=== PATIENT | female | born 1990 | race Caucasian/White ===

== ENCOUNTER 2022-04-12 15:40 | Inpatient (IN) | payer OTHER ==
[2022-04-12] MEDS ORDERED: OXYTOCIN 30 UNITS in 0.9% NS 30 UNIT/500 ML INFUS.BAG IVPB SCH (16:45)
[2022-04-12 17:13] VITALS: BMI 33.5
[2022-04-12] MEDS ORDERED: DEXTROSE 5%-LACTATED RINGERS 1,000 ML IV SCH (17:15)
[2022-04-12 18:12] LABS: BASO % 0.2 % (0-2.0); EOS % 0.9 % (0-4.5); HEMATOCRIT 31.3 % (32.4-45.2); HEMOGLOBIN 11.1 GM/dL (10.7-15.3); LYMPH % 23.2 % (8-40); MCH 31.5 pg (25.7-33.7); MCHC 35.3 g/dl (32.0-36.0); MEAN CELL VOLUME 89.1 fl (80-96); MEAN PLT VOLUME 9.7 fl (7.5-11.1); MONO % 7.9 % (3.8-10.2); NEUT % 67.8 % (42.8-82.8); PLATELET COUNT 233 10^3/uL (134-434); RBC 3.52 M/mm3 (3.60-5.2); RDW 13.2 % (11.6-15.6); WHITE BLOOD COUNT 10.4 K/mm3 (4.0-10.0)
[2022-04-12 18:18] LABS: INR 0.95 (0.83-1.09); PROTHROMBIN TIME (PATIENT) 10.9 SEC (9.7-13.0)
[2022-04-12 18:20] LABS: ACTIVATED PTT 28.6 SECONDS (25.2-36.5)
[2022-04-12 18:31] LABS: CALCIUM 8.6 mg/dL (8.5-10.1)
[2022-04-12 18:32] LABS: BLOOD UREA NITROGEN 10.3 mg/dL (7-18)
[2022-04-12 18:35] LABS: CREATININE 0.7 mg/dL (0.55-1.3)
[2022-04-13] MEDS ORDERED: FENTANYL/BUPIVACAINE/NS/PF - PCEA - 50 ML DISP.SYRIN EP ONE ×2 (09:44→11:04)
[2022-04-13] MEDS: ELECTROLYTE-148 SOLN 1,000 ML IV SCH ×2 (10:00→14:00)
[2022-04-13] MEDS ORDERED: BUPIVACAINE HCL/PF 0.25% (2.5MG/ML) 10 ML VIAL ONE (11:07)
[2022-04-13] MEDS ORDERED: NALOXONE HCL 0.4 MG/ML VIAL IVPUSH PRN (11:15)
[2022-04-13] MEDS: FENTANYL/BUPIVACAINE/NS/PF - PCEA - 50 ML DISP.SYRIN EP SCH (11:40)
[2022-04-13] MEDS ORDERED: OXYTOCIN 20 UNITS in 0.9% NS 20 UNIT/1,000 ML INFUS.BAG IV ONE (14:26)
[2022-04-13] MEDS ORDERED: METHYLERGONOVINE MALEATE 0.2 MG/1 ML AMP IM PRN (15:40)
[2022-04-13] MEDS ORDERED: IBUPROFEN 600 MG TABLET (FP) PO PRN (15:40)
[2022-04-13] MEDS ORDERED: BENZOCAINE 20% 57 GM BOTTLE TP PRN (15:40)
[2022-04-13] MEDS ORDERED: WITCH HAZEL 50% (TUCKS) 40 PAD/JAR PAD TP PRN (15:40)
[2022-04-13] MEDS ORDERED: ACETAMINOPHEN 325 MG TABLET (FP) PO PRN (15:40)
[2022-04-13] MEDS ORDERED: oxyCODONE HCL 5 MG TABLET PO PRN (15:40)
[2022-04-13] MEDS ORDERED: BISACODYL 10 MG SUPP.RECT RC PRN (15:40)
[2022-04-13] MEDS ORDERED: BENZOCAINE 28 GM HEMORRHOIDAL OINTMENT TP PRN (15:40)
[2022-04-13] MEDS ORDERED: OXYTOCIN 20 UNITS in 0.9% NS 20 UNIT/1,000 ML INFUS.BAG IV SCH (15:45)
[2022-04-13 15:47] LABS: CORD BASE EXCESS -9.7 mmol/L (0-2); CORD BASE EXCESS -9.8 mmol/L (0-2); CORD HCO3 18.1 mmHg (20-29); CORD HCO3 19.3 mmHg (20-29); CORD PCO2 46.6 mmHg (30-78); CORD PCO2 55.1 mmHg (30-78); CORD pH 7.162 (7.14-7.44); CORD pH 7.208 (7.14-7.44)
[2022-04-14 08:47] LABS: BASO % 0.1 % (0-2.0); EOS % 0.1 % (0-4.5); HEMATOCRIT 26.8 % (32.4-45.2); HEMOGLOBIN 9.2 GM/dL (10.7-15.3); LYMPH % 18.5 % (8-40); MCH 30.7 pg (25.7-33.7); MCHC 34.3 g/dl (32.0-36.0); MEAN CELL VOLUME 89.4 fl (80-96); MONO % 7.8 % (3.8-10.2); NEUT % 73.5 % (42.8-82.8); PLATELET COUNT 200 10^3/uL (134-434); RDW 13.6 % (11.6-15.6)
[2022-04-14] MEDS: PRENATAL VITAMINS W/ FOLIC ACID TABLET (FP) PO SCH (10:13)
[2022-04-14 13:06] LABS: POC NITRAZINE POS
[2022-04-14] MEDS ORDERED: SENNOSIDES/DOCUSATE COMBO (SENNA PLUS) TABLET (UD) PO PRN (22:00)
[2022-04-15] MEDS: FENTANYL/BUPIVACAINE/NS/PF - PCEA - 50 ML DISP.SYRIN EP SCH (07:39)
[2022-04-15] MEDS: PRENATAL VITAMINS W/ FOLIC ACID TABLET (FP) PO SCH (10:47)
[2022-04-15 10:59] VITALS: BP 128/81; PULSE 92; TEMP 97.8
== END 2022-04-15 13:00 | disposition home or self-care (01) | DRG 807 ==
LOC: JLDR 15:40 → J3W 04-13 17:45
PROVIDERS: ADMIT Obstetrics & Gynecology; ATTEND Obstetrics & Gynecology
PROC: 10D07Z6 Extraction of Products of Conception, Vacuum, Via Natural or Artificial Opening (ICD-10-PCS; principal; 2022-04-12)
PROC: 0KQM0ZZ Repair Perineum Muscle, Open Approach (ICD-10-PCS; 2022-04-12)
PROC: 0W8NXZZ Division of Female Perineum, External Approach (ICD-10-PCS; 2022-04-12)
DX: O42.12 Full-term premature rupture of membranes, onset of labor more than 24 hours following rupture (principal); Z37.0 Single live birth; O40.3XX0 Polyhydramnios, third trimester, not applicable or unspecified; O75.9 Complication of labor and delivery, unspecified; O99.02 Anemia complicating childbirth; D57.3 Sickle-cell trait; O34.13 Maternal care for benign tumor of corpus uteri, third trimester; D25.9 Leiomyoma of uterus, unspecified; O70.1 Second degree perineal laceration during delivery; Z3A.39 39 weeks gestation of pregnancy
CPT/HCPCS: 36415; 36600; 59409; 80048; 82803; 83986-QW; 85025; 85610; 85730; 86780; 86850; 86900; 86901; C9803-CS; U0003; U0005